=== PATIENT | male | born 1965 | race Caucasian/White ===

== ENCOUNTER 2017-01-26 04:29 | Day surgery (SDC) | payer BC ==
[2017-01-25 09:29] LABS: HEMOGLOBIN 14.6 g/dL (13.6-17.8)
--- NOTE | ~2017-01-26 | OP ---
Record Of Operation [facility] [address] [place]. [address] NAME: SAM SWANSON : 69 STATUS : [facility]#: [id number] AGE: 51 ADM/REG DATE : 01/26/17 MR#: [id number] REPORT SERV DATE: 01/28/17 DICTATED BY: VITOR URENA II DATE: 01/28/17 REPORT STATUS : Draft TRANSCRIBED BY: MODMillie DATE: 01/28/17 DATE OF PROCEDURE: 01/26/2017 PREOPERATIVE DIAGNOSES: 1. Severe left lower extremity radiculopathy. 2. L4-5 spondylolisthesis without instability. 3. L5-S1 stenosis, foraminal. 4. Degenerative scoliosis and multilevel degenerative disk disease. POSTOPERATIVE DIAGNOSIS: 1. Severe left lower extremity radiculopathy. 2. L4-5 spondylolisthesis without instability. 3. L5-S1 stenosis, foraminal. PROCEDURES: 1. Lumbar laminectomy, L4-L5, L5-S1. 2. Use of the microscope and stereotactic spinal imaging. SURGEON: Vitor Urena M.D. DRAINS: None. COMPLICATIONS: None. ANTIBIOTIC: Preoperatively. PREOPERATIVE HISTORY: The patient is a very friendly 51-year-old gentleman, who is well known to me. 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 He has been having miserable pain in his left buttock radiating down his leg into the lateral aspect of the leg. He has been in severe pain. We discussed the pros and cons of surgery. His MRI and imaging overall showed L4-5 spondylolisthesis without instability. This was a grade 1 spondylolisthesis, which appeared to be degenerative. Imaging also showed some scoliosis and multilevel degenerative disk disease much more significant than a 51-year-old would normally have. Fortunately, he did not have significant back pain. He was having again severe radiculopathy. There appeared to be some foraminal stenosis of significance as well at the L5-S1 level. We discussed the pros and cons of surgery. He was on narcotics to help the pain. He had failed an epidural steroid injection and wished to have something done to try and improve his quality of life. We discussed the risks of the surgery as well as the benefits. We discussed the fact that surgery had a reasonable success rate, but if it failed short or intermediate, he would likely require a fusion. We discussed the fact that other risks were present, which include, but are not limited to infection, abscess, CSF leak, and nerve damage. DESCRIPTION OF PROCEDURE: After informed consent was obtained, the patient was brought to the operating room at his request and general anesthesia achieved. He was placed in prone position. The back was prepped and draped in a sterile fashion. Stereotactic spinal pin was placed into the right iliac crest and the intraoperative CT scan completed. Record Of Operation [facility] [id number] [place]. [address] NAME: SAM SWANSON : 69 STATUS : [facility]#: [id number] AGE: 51 ADM/REG DATE : 01/26/17 MR#: [id number] REPORT SERV DATE: 01/28/17 DICTATED BY: VITOR URENA II DATE: 01/28/17 REPORT STATUS : Draft TRANSCRIBED BY: LUCY DATE: 01/28/17 Stereotactic guidance was then used throughout the case. The minimally invasive incision was now performed on the left at L4-5 and L5-S1. The minimally invasive quadrant retractor was placed. The microscope was then brought into place and the soft tissue removed from the interlaminar space at L4-5 and L5-S1. The facet capsules were protected. Using the high-speed bur, the Kerrison rongeurs, and the curettes, the laminectomy was initiated at L4-L5. We performed a unilateral approach through the retractor. We were able to achieve a reasonable decompression at L4-L5. I did not remove excessive amounts of the spinolaminar junction trying to preserve as much stability as possible given the spondylolisthesis. We removed approximately one-third of the facet joint. The lateral recess was now well decompressed and the L5 nerve root decompressed by removing additional ligamentum flavum. At this point, the L5 nerve root was directly observed to be well decompressed. We then worked down at the L5-S1 level whereupon the left lamina was removed and the stenosis alleviated from the central canal. The ligamentum flavum was more thick at this level than normal. The dura was then well decompressed centrally. Once again, we then decompressed the S1 nerve root in the lateral recess. At this point, the L5 nerve root was identified in the foraminal zone at its takeoff point. We were able to decompress the L5 nerve root in the foraminal zone as well. The short and long-tipped ball probes were used to confirm the L5 nerve root was acceptably decompressed. There was a large annular protrusion, which was causing some compression in the foraminal zone and this was partially removed. At this point, the area was irrigated copiously followed by confirmation of hemostasis. Standard closure was performed. The patient was extubated and transferred to PACU in stable condition. PEDRO PABLO/LUCY Vitor Urena II, M.D. / [id number] CC: Bren Mcpherson II
[~2017-01-26 04:29] MED LIST: NEUR300 PO; NORCO1 TAB PO
== END 2017-01-26 10:46 | disposition home or self-care (01) ==
LOC: SDC 04:29
PROVIDERS: Orthopaedic Surgery
PROC: 01NB0ZZ Release Lumbar Nerve, Open Approach (ICD-10-PCS; principal; 2017-01-26 05:45)
DX: M48.06 Spinal stenosis, lumbar region (principal); M43.16 Spondylolisthesis, lumbar region; M51.16 Intervertebral disc disorders with radiculopathy, lumbar region; M41.86 Other forms of scoliosis, lumbar region; K21.9 Gastro-esophageal reflux disease without esophagitis; Z98.890 Other specified postprocedural states
CPT/HCPCS: 85014; 85018; 88304; 88311; J0690; J1030; J1170; J1885; J2250; J2405; J2710; J3010